=== PATIENT | male | born 1945 | race Caucasian/White ===

== ENCOUNTER 2018-09-13 18:08 | Inpatient (IN) | payer MEDICARE, OTHER ==
[~2018-09-13] VITALS: Ht 180.3 cm; Wt 101.2 kg
--- NOTE | 2018-09-13 18:10 | NUR ---
BIB SELF 73 YEAR OLD MALE C/O L FOOT PAIN AND SWELLING, DIABETIC FOOT ULCER NOTED X 3 WEEKS. ALERT AND ORIENTED X4, BREATHING EVEN AND UNLABORED WITH NO DISTRESS NOTED. SKIN WARM TO TOCUH. NOTED WITH LEFT FOOT WOUND. AWAITING TO BE SEEN BY .
[2018-09-13] MEDS ORDERED: PIPERACILLIN /TAZOBACTAM 3.375 G in IV D5W 50 ML IV ONE (19:00)
[2018-09-13] MEDS ORDERED: VANCOMYCIN 1 GM in IV D5W 250 ML IV ONE (19:00)
[2018-09-13] MEDS ORDERED: IV NS 0.9% 1,000 ML BAG IV ONE (19:00)
[2018-09-13] MEDS ORDERED: VANCOMYCIN 1 GM VIAL ONE ×2 (19:00→23:41)
[2018-09-13] MEDS ORDERED: PIPERACILLIN /TAZOBACTAM 3.375 G VIAL IV ONE ×2 (19:00→23:38)
[2018-09-13 19:12] LABS: BASOPHILS # (AUTO) 0.2 /CMM (0.0-0.2); BASOPHILS % (AUTO) 0.9 % (0.0-2.0); EOSINOPHILS % (AUTO) 0.1 % (0.0-6.0); HEMATOCRIT 42 % (39-51); LYMPHOCYTES # (AUTO) 2.1 /CMM (0.8-4.8); LYMPHOCYTES % (AUTO) 11.4 % (20.0-44.0); MEAN CORPUSCULAR HGB CONC 33 g/dl (31.0-36.0); MEAN CORPUSCULAR VOLUME 91 fL (80-96); MONOCYTES # (AUTO) 1.3 /CMM (0.1-1.30); MONOCYTES % (AUTO) 7.2 % (2.0-12.0); NEUTROPHILS # (AUTO) 14.5 /CMM (1.8-8.9); NEUTROPHILS % (AUTO) 80.4 % (43.0-81.0); PLATELET COUNT (AUTO) 209 /CMM (150-450); RED BLOOD CELL COUNT(AUTO) 4.63 MIL/uL (4.5-6.0); WHITE BLOOD COUNT (AUTO) 18.1 K/uL (4.3-11.0)
[2018-09-13 19:23] LABS: CALCIUM, SERUM 10.2 mg/dL (8.5-10.1); CARBON DIOXIDE 24 mmol/L (21-32); CHLORIDE 99 mmol/L (98-107); CREATININE 1.6 mg/dL (0.6-1.3); GLUCOSE 278 mg/dL (74-106); POTASSIUM 4.5 mmol/L (3.5-5.1); SODIUM SERUM 133 mmol/L (136-145); UREA NITROGEN, BLOOD 31 mg/dL (7-18)
--- NOTE | 2018-09-13 19:23 | NUR ---
REPORT GIVEN TO DENEEN TO CONTINUE TO MONITOR CONTUNITY OF CARE
[2018-09-13 19:29] LABS: ALANINE AMINOTRANSFERASE 21 U/L (12-78); ALBUMIN 3.6 g/dL (3.4-5.0); ALKALINE PHOSPHATASE 71 U/L (46-116); ASPARTATE AMINOTRANSFERASE 12 U/L (15-37); BILIRUBIN,DIRECT 0.1 mg/dL (0.0-0.2); BILIRUBIN,TOTAL 0.8 mg/dL (0.2-1.0); TOTAL PROTEIN, SERUM 8.5 g/dL (6.4-8.2)
[2018-09-13 19:43] LABS: LYMPHOCYTES % (MANUAL) 15 % (16-48); MONOCYTES % (MANUAL) 11 % (0-11.0); NEUTROPHILS % (MANUAL) 74 (42-76)
[2018-09-13] MEDS ORDERED: ACETAMINOPHEN 325 MG TABLET PO PRN (20:30)
[2018-09-13] MEDS ORDERED: ONDANSETRON HCL/PF 4 MG/2 ML VIAL IVP PRN (20:30)
[2018-09-13] MEDS ORDERED: MAGNESIUM HYDROXIDE 30 ML UDC PO PRN (20:30)
[2018-09-13] MEDS ORDERED: DEXTROSE 50%-WATER 50 ML DISP.SYRIN IV PRN (20:30)
[2018-09-13] MEDS ORDERED: MAG HYDROX/AL HYDROX/SIMETH 30 ML UDC PO PRN (20:30)
[2018-09-13] MEDS ORDERED: Z GUARD REMEDY 2 OZ OINT TP PRN (20:30)
[2018-09-13] MEDS ORDERED: ZOLPIDEM TARTRATE 5 MG TABLET PO PRN (20:30)
[2018-09-13] MEDS ORDERED: HYDROCODONE/APAP 5/325MG 1 EACH TABLET PO PRN (20:30)
--- NOTE | 2018-09-13 20:47 | NUR ---
ADMIT TO ROOM 203 MED SURG DX DIABETIC FOOT ULCER
--- NOTE | 2018-09-13 21:52 | NUR ---
REPORT GIVEN TO ZEV BELLE.
[2018-09-13 22:15] VITALS: BP 137/69
[2018-09-13] MEDS: BLOOD SUGAR DIAGNOSTIC 1 EACH STRIP VI SCH (22:27)
[2018-09-13 22:30] VITALS: BP 137/69
[2018-09-13] MEDS: *INSULIN REGULAR(HUMULIN R)HUM 100 UNIT/ML VIAL SQ PRN (22:30)
--- NOTE | 2018-09-13 22:30 | NUR ---
MS/RN OPENING NOTES PT RECEIVED TO UNIT FROM ER VIA MOON. A/OX3. ON ROOM AIR, BREATHING TANMAY AND UNLABORED. DENIES SOB, PAIN. IN NO ACUTE DISTRESS.IV TO LFA PATENT AND INTACT. ORIENTED PT TO ROOM AND CALL LIGHT. SEMI FOWLERS. BED IN LOW/LOCKED POSITION WITH CALL LIGHT IN REACH AND BILATERAL UPPER SIDE RAILS IN PLACE. WILL CONTINUE TO MONITOR
[2018-09-13] MEDS ORDERED: METF-440 PO (22:41)
[2018-09-13] MEDS ORDERED: VANCOMYCIN 1 GM in IV NS 0.9% 250 ML IV ONE (23:00)
[2018-09-13] MEDS ORDERED: VANCOMYCIN 0.75 GM in IV NS 0.9% 250 ML IV ONE (23:00)
--- NOTE | 2018-09-13 23:19 | NUR ---
MS/RN NOTES PER ABRASIVE [facility], GIVE ADDITIONAL DOSE OF IV VANCO 1GM
[2018-09-14] MEDS: PIPERACILLIN /TAZOBACTAM 3.375 G in IV D5W 100 ML IV SCH ×3 (05:26→20:50)
[2018-09-14 06:40] LABS: BASOPHILS # (AUTO) 0.2 /CMM (0.0-0.2); BASOPHILS % (AUTO) 1.1 % (0.0-2.0); EOSINOPHILS % (AUTO) 0.8 % (0.0-6.0); HEMATOCRIT 37 % (39-51); HEMOGLOBIN 12.1 g/dL (13.5-17.5); LYMPHOCYTES # (AUTO) 2.7 /CMM (0.8-4.8); LYMPHOCYTES % (AUTO) 17.9 % (20.0-44.0); MEAN CORPUSCULAR HGB CONC 33 g/dl (31.0-36.0); MEAN CORPUSCULAR VOLUME 91 fL (80-96); MONOCYTES # (AUTO) 1.6 /CMM (0.1-1.30); MONOCYTES % (AUTO) 10.4 % (2.0-12.0); NEUTROPHILS # (AUTO) 10.4 /CMM (1.8-8.9); NEUTROPHILS % (AUTO) 69.8 % (43.0-81.0); PLATELET COUNT (AUTO) 180 /CMM (150-450); RED BLOOD CELL COUNT(AUTO) 4.02 MIL/uL (4.5-6.0); WHITE BLOOD COUNT (AUTO) 14.9 K/uL (4.3-11.0)
[2018-09-14] MEDS: BLOOD SUGAR DIAGNOSTIC 1 EACH STRIP VI SCH ×4 (06:48→21:14)
[2018-09-14 06:52] LABS: CALCIUM, SERUM 8.7 mg/dL (8.5-10.1); CARBON DIOXIDE 24 mmol/L (21-32); CHLORIDE 104 mmol/L (98-107); CREATININE 1.3 mg/dL (0.6-1.3); GLUCOSE 163 mg/dL (74-106); MAGNESIUM 2.1 mg/dL (1.8-2.4); PHOSPHORUS 3.1 mg/dL (2.5-4.9); POTASSIUM 4.3 mmol/L (3.5-5.1); SODIUM SERUM 139 mmol/L (136-145); UREA NITROGEN, BLOOD 25 mg/dL (7-18)
[2018-09-14] MEDS: INSULIN REGULAR, HUMAN 100 UNIT/ML 3 ML VIAL SQ PRN ×3 (06:52→17:15)
[2018-09-14 07:00] VITALS: BP 150/82
[2018-09-14 07:00] LABS: CHOLESTEROL 119 mg/dL (<200); HDL CHOLESTEROL 46 mg/dL (40-60); LDL 63 mg/dL (0-99); THYROID STIMULATING HORMONE 0.805 uIU/mL (0.358-3.74); TRIGLYCERIDES 68 mg/dL (30-150)
--- NOTE | 2018-09-14 07:27 | NUR ---
MS/RN CLOSING NOTES PT AWAKE, RESTING COMFORTABLY IN BED. ON ROOM AIR, BREATHING EVEN AND UNLABORED. DENIES SOB, PAIN, N/V. IV TO LFA PATENT AND INTACT CURRENTLY RUNNING IV ZOSYN. NO SIGNIFICANT CHANGES OVERNIGHT. ALL NEEDS MET. BED IN LOW/LOCKED POSITION WITH CALL LIGHT IN REACH AND BILATERAL UPPER SIDE RAILS IN PLACE. FALL RISK AND BED ALARM ON FOR SAFETY. ENDORSED TO DAY SHIFT RN ARELI.
[2018-09-14 08:00] VITALS: BP 126/74
--- NOTE | 2018-09-14 08:02 | NUR ---
MS RN OPENING NOTE RECEIVED PATIENT ASLEEP IN BED LOCKED IN LOWEST POSITION WITH SIDERAILS UP X2. NO FACIAL GRIMACING NOTED FOR PAIN AT THIS TIME. CALL LIGHT WITHIN REACH.IV INTACT AND PATENT NO REDNESS OR SWELLING NOTED. HAS LEFT FOOT NON-PITTING EDEMA NOTED. NO SOB OR DISTRESS NOTED ON ROOM AIR TOLERATING WELL WITH O2 SAT AT 99%. USES URINAL AT BEDSIDE. BED ALARM ON FOR SAFETY. BLOOD SUGAR TO BE CHECKED THROUGHOUT SHIFT AND INSULIN TO BE GIVEN ACCORDINGLY. LABS THIS MORNING. AWAITING DIETARY AND WOUND CONSULT FOR DIABETIC FOOT ULCER. PER USED CAR SALESPERSON RN, WILL BRING IN LIST OF HOME MEDICATIONS TODAY, WILL CONTINUE TO MONITOR THROUGHOUT SHIFT
[2018-09-14 08:28] VITALS: BP 126/74
[2018-09-14] MEDS ORDERED: FEE PK DOSING 1 MIN EA MC ONE ×2 (08:39→08:42)
[2018-09-14] MEDS ORDERED: DULO60CA45 PO (10:34)
[2018-09-14] MEDS ORDERED: METF-834 PO (10:34)
[2018-09-14] MEDS ORDERED: CLOP75TA15 PO (10:34)
[2018-09-14] MEDS ORDERED: VALS1TAB4 PO (10:34)
[2018-09-14] MEDS ORDERED: ROSU10TA2 PO (10:34)
[2018-09-14] MEDS ORDERED: MAGN400T6 PO (10:34)
[2018-09-14] MEDS ORDERED: EMPA25TA PO (10:34)
[2018-09-14] MEDS ORDERED: GABA-532 PO (10:34)
[2018-09-14] MEDS ORDERED: ASPI-605 PO (10:34)
--- NOTE | 2018-09-14 12:00 | NUR ---
MS RN NOTE BS-174 INSULIN TO BE GIVEN ONCE FOOD AT BEDSIDE
--- NOTE | 2018-09-14 12:22 | NUR ---
MS RN NOTE PER ANAI HERRERA, NIGHT WAREHOUSE SELECTOR TO GIVE ONE BAG NS AT 75 ONE TIME. ORDER NOTED AND CARRIED OUT DR. SAHNI TO SEE PATIENT TOMORROW 09/15/18
[2018-09-14] MEDS ORDERED: IV NS 0.9% 1,000 ML BAG IV ONE (12:30)
--- NOTE | 2018-09-14 12:30 | NUR ---
MS RN NOTE SEEN BY DR. FUAD PIMENTEL AT BEDSIDE
[2018-09-14] MEDS: GABAPENTIN 100 MG CAPSULE PO SCH ×2 (13:41→16:47)
--- NOTE | 2018-09-14 14:24 | NUR ---
MS RN NOTE STEAM AND GAS TURBINES ASSEMBLER AT BEDSIDE FOR VENOUS DUPLEX BILATERAL EXT TO RULE OUT DVT
[2018-09-14 16:00] VITALS: BP 128/71
--- NOTE | 2018-09-14 16:10 | NUR ---
MS RN NOTE IV STARTED ON RIGHT FOREARM 22G SALINE LOCK. INTACT AND PATENT NO REDNESS OR SWELLING NOTED.
[2018-09-14 16:13] VITALS: BP 128/71
[2018-09-14 16:13] LABS: CREATININE, URINE 65.8 MG/DL (30.0-125.0); URINE TOTAL PROTEIN 17.1 mg/dL (0-11.9)
[2018-09-14] MEDS: MAGNESIUM OXIDE 400 MG TABLET PO SCH (16:47)
--- NOTE | 2018-09-14 16:50 | NUR ---
MS BELLE NOTE BS-188 INSULIN TO BE GIVEN Addendum: 09/14/18 at 1824 by PHOENIX ROBERTSON RN 3 UNITS OF INSULIN GIVEN WITH FOOD AT THE BEDSIDE
[2018-09-14] MEDS: VANCOMYCIN 1.25 GM in IV D5W 500 ML IV SCH (17:16)
--- NOTE | 2018-09-14 18:25 | NUR ---
MS RN CLOSING NOTE PATIENT RESTING IN BED AT THIS TIME. ALERT AND ORIENTED x3, ABLE TO COMMUNICATE NEEDS. IV INTACT AND PATENT NO REDNESS OR SWELLING NOTED FLUSHES WELL. CALL LIGHT WITHIN REACH AT ALL TIMES, ALL NEEDS MET. ALL DUE MEDICATIONS GIVEN ORDERED BY MD. AWAITING PODIATRY CONSULT WITH DR SZYMANSKI. BLOOD SUGARS CHECKED THROUGHOUT SHIFT AND INSULIN GIVEN PER PROTOCOL. URINE SAMPLE AND WOUND CX WITH GRAM STAIN SENT TO LAB. NO FACIAL GRIMACING NOTED FOR PAIN. NO SOB OR DISTRESS NOTED ON ROOM AIR TOLERATING WELL. WILL ENDORSE TO TRAVEL RN NURSE FOR ARELI
--- NOTE | 2018-09-14 19:30 | NUR ---
RECEIVED PATIENT AWAKE IN BED. AO X 3, ABLE TO MAKE NEEDS KNOWN. NO ACUTE DISTRESS NOTED. DENIES ANY PAIN AT THIS TIME. IV SITE PATENT, INTACT; IV ATB INFUSING ORDERED. SAFETY REMINDERS GIVEN. ON LOW BED WITH BILATERAL UPPER SIDE RAIL UP. CALL BRUNER WITHIN EASY REACH. WILL CONTINUE TO MONITOR.
[2018-09-14] MEDS: *INSULIN REGULAR(HUMULIN R)HUM 100 UNIT/ML VIAL SQ PRN (21:17)
[2018-09-14 22:00] VITALS: BP 150/82
[2018-09-15] MEDS: PIPERACILLIN /TAZOBACTAM 3.375 G in IV D5W 100 ML IV SCH ×3 (04:20→21:29)
[2018-09-15] MEDS ORDERED: VANCOMYCIN 1.25 GM in IV D5W 500 ML IV SCH (06:00)
--- NOTE | 2018-09-15 06:18 | NUR ---
PATIENT ASLEEP, EASILY AROUSABLE. RESPIRATIONS EVEN. NO SIGNS OF PAIN NOTED. NO SYMPTOMS OF HYPER/HYPOGLYCEMIA. DUE MEDS GIVEN WITH NO ASE NOTED. LEFT FOOT DRESSING INTACT. NEEDS ATTENDED. SAFETY PRECAUTIONS AND COMFORT MEASURES IN PLACE. WILL GIVE REPORT TO DAY SHIFT FOR CONTINUITY OF CARE.
[2018-09-15] MEDS: INSULIN REGULAR, HUMAN 100 UNIT/ML 3 ML VIAL SQ PRN ×3 (06:54→17:19)
[2018-09-15] MEDS: BLOOD SUGAR DIAGNOSTIC 1 EACH STRIP VI SCH ×4 (06:56→21:45)
--- NOTE | 2018-09-15 06:56 | NUR ---
BS 178
[2018-09-15 07:14] LABS: BASOPHILS # (AUTO) 0.1 /CMM (0.0-0.2); BASOPHILS % (AUTO) 0.9 % (0.0-2.0); EOSINOPHILS % (AUTO) 1.3 % (0.0-6.0); HEMATOCRIT 37 % (39-51); LYMPHOCYTES # (AUTO) 2.6 /CMM (0.8-4.8); LYMPHOCYTES % (AUTO) 20.7 % (20.0-44.0); MEAN CORPUSCULAR HGB CONC 33 g/dl (31.0-36.0); MEAN CORPUSCULAR VOLUME 91 fL (80-96); MONOCYTES # (AUTO) 1.2 /CMM (0.1-1.30); MONOCYTES % (AUTO) 9.4 % (2.0-12.0); NEUTROPHILS # (AUTO) 8.4 /CMM (1.8-8.9); NEUTROPHILS % (AUTO) 67.7 % (43.0-81.0); PLATELET COUNT (AUTO) 174 /CMM (150-450); RED BLOOD CELL COUNT(AUTO) 4.02 MIL/uL (4.5-6.0); WHITE BLOOD COUNT (AUTO) 12.4 K/uL (4.3-11.0)
[2018-09-15] MEDS ORDERED: LIDOCAINE 1% INJ 50 ML MDV IJ STA (07:24)
[2018-09-15 07:25] LABS: CALCIUM, SERUM 8.3 mg/dL (8.5-10.1); CARBON DIOXIDE 23 mmol/L (21-32); CHLORIDE 104 mmol/L (98-107); CREATININE 1.3 mg/dL (0.6-1.3); GLUCOSE 166 mg/dL (74-106); POTASSIUM 4.2 mmol/L (3.5-5.1); SODIUM SERUM 138 mmol/L (136-145); UREA NITROGEN, BLOOD 22 mg/dL (7-18)
--- NOTE | 2018-09-15 07:26 | NUR ---
MS/RN OPENING NOTE THE PATIENT ALERT AND ORIENTED X4. IN ROOM AIR AND DENIES SOB. RESPIRATION REGULAR AND UNLABORED. DENIES PAIN. THE PATIENT IN NO APPARENT DISTRESS. LFA G 20 PATENT AND SALINE LOCKED. BED LOW AND LOCKED. SIDE RAILS UP X3. CALL LIGHT WITHIN REACH. WILL CONTINUE TO MONITOR.
--- NOTE | 2018-09-15 07:30 | NUR ---
MS/RN NOTE LIDOCAINE 1% 20 MG IS ADMINISTERED BT DR SZYMANSKI.
[2018-09-15 08:08] VITALS: BP 111/60
[2018-09-15] MEDS: VALSARTAN 80 MG TABLET PO SCH (09:22)
[2018-09-15] MEDS: MAGNESIUM OXIDE 400 MG TABLET PO SCH ×2 (09:22→16:09)
[2018-09-15] MEDS: GABAPENTIN 100 MG CAPSULE PO SCH ×3 (09:23→16:09)
[2018-09-15] MEDS: ASPIRIN EC 81 MG TABLET.DR PO SCH (09:23)
[2018-09-15] MEDS: DULOXETINE HCL 30 MG CAPSULE.DR PO SCH (09:23)
[2018-09-15] MEDS: CLOPIDOGREL BISULFATE 75 MG TABLET PO SCH (09:23)
[2018-09-15] MEDS: HYDROCHLOROTHIAZIDE 25 MG TABLET PO SCH (09:23)
[2018-09-15] MEDS: ATORVASTATIN 10 MG TABLET PO SCH (09:23)
[2018-09-15] MEDS: VANCOMYCIN 1.25 GM in IV D5W 500 ML IV SCH (12:29)
[2018-09-15 16:05] VITALS: BP 138/87
[2018-09-15] MEDS: LACTOBACILLUS RHAMNOSUS GG 1 EACH CAP.SPRINK PO SCH (16:09)
--- NOTE | 2018-09-15 18:21 | NUR ---
MS/RN CLOSING NOTE THE PATIENT ALERT AND ORIENTED X4. DENIES SOB. RESPIRATION REGULAR AND UNLABORED. DENIES PAIN. LFA G 20 PATENT AND IV ANTIBIOTIC INFUSING WITH NO S/S INFILTRATION. BED LOW AND LOCKED. SIDE RAILS UP X3. CALL LIGHT WITHIN REACH. WILL ENDORSE TO DIRECTOR MEDICAL SCIENCE.
[2018-09-15 19:00] VITALS: BP 132/74
[2018-09-15] MEDS: *INSULIN REGULAR(HUMULIN R)HUM 100 UNIT/ML VIAL SQ PRN (21:46)
[2018-09-16] MEDS: PIPERACILLIN /TAZOBACTAM 3.375 G in IV D5W 100 ML IV SCH ×3 (04:03→21:19)
[2018-09-16] MEDS: BLOOD SUGAR DIAGNOSTIC 1 EACH STRIP VI SCH ×4 (06:30→21:19)
[2018-09-16] MEDS: INSULIN REGULAR, HUMAN 100 UNIT/ML 3 ML VIAL SQ PRN ×4 (06:49→21:30)
--- NOTE | 2018-09-16 06:50 | NUR ---
MS RN NOTES: BLOOD SUGAR THIS AM WAS 175. 3 UNITS OF INSULIN WAS ADMINISTERED. JUICES AT BEDSIDE.
--- NOTE | 2018-09-16 07:18 | NUR ---
MS RN CLOSING NOTES: ALL NEEDS WERE ATTENDED AND ANTICIPATED FOR. PT KEPT CLEAN, DRY, AND COMFORTABLE. PT ASLEEP AT THIS TIME. DRESSING REMAINS ON L FOOT AND IS KEPT CLEAN AND DRY. BLOOD SUGAR THIS AM WAS 175. 3 UNITS OF INSULIN WAS ADMINISTERED THIS AM. PT BEING INFUSED WITH IV ZOSYN AT 25ML/HR. VANCO TROUGH RESULTED AND WILL ENDORSE TO AM NURSE FOR HANGING WHEN ZOSYN IS FINISHED. BED KEPT IN LOW, LOCKED POSITION, AND SIDE RAILS X 2UP. ENDORSED TO AM NURSE FOR ARELI.
[2018-09-16 07:21] LABS: CALCIUM, SERUM 8.5 mg/dL (8.5-10.1); CARBON DIOXIDE 23 mmol/L (21-32); CHLORIDE 101 mmol/L (98-107); CREATININE 1.3 mg/dL (0.6-1.3); GLUCOSE 166 mg/dL (74-106); POTASSIUM 4.2 mmol/L (3.5-5.1); SODIUM SERUM 135 mmol/L (136-145); UREA NITROGEN, BLOOD 20 mg/dL (7-18)
[2018-09-16] MEDS: VANCOMYCIN 1.25 GM in IV D5W 500 ML IV SCH (07:34)
--- NOTE | 2018-09-16 07:52 | NUR ---
WOUND CARE CONSULT WOUND CARE RECEIVED CONSULT FOR DIABETIC FOOT ULCER. WOUND CARE WILL DEFER CONSULT AND TREATMENT PLANS TO DPM DR SZYMANSKI WHO IS CURRENTLY FOLLOWING THIS PATIENT. PATIENT WITH YELENA AT 17, ALL PRESSURE ULCER PREVENTION MEASURES ARE NOTED TO BE IN PLACE. WILL SEE PRN.
[2018-09-16 08:00] VITALS: BP 136/86
[2018-09-16] MEDS: GABAPENTIN 100 MG CAPSULE PO SCH ×3 (08:15→17:50)
[2018-09-16] MEDS: LACTOBACILLUS RHAMNOSUS GG 1 EACH CAP.SPRINK PO SCH ×2 (08:15→17:50)
[2018-09-16] MEDS: MAGNESIUM OXIDE 400 MG TABLET PO SCH ×2 (08:15→17:50)
[2018-09-16] MEDS: DULOXETINE HCL 30 MG CAPSULE.DR PO SCH (08:15)
[2018-09-16] MEDS: ATORVASTATIN 10 MG TABLET PO SCH (08:15)
[2018-09-16] MEDS: CLOPIDOGREL BISULFATE 75 MG TABLET PO SCH (08:15)
[2018-09-16] MEDS: ASPIRIN EC 81 MG TABLET.DR PO SCH (08:15)
[2018-09-16] MEDS: VALSARTAN 80 MG TABLET PO SCH (08:16)
[2018-09-16] MEDS: HYDROCHLOROTHIAZIDE 25 MG TABLET PO SCH (08:16)
--- NOTE | 2018-09-16 13:18 | NUR ---
MRI APPROVED BY DR. BARRERA, IT WILL BE LATER THIS AFTERNOON.EGYPTOLOGIST IS AWARE
[2018-09-16 16:30] VITALS: BP 144/88
--- NOTE | 2018-09-16 18:31 | NUR ---
MS/RN CLOSING NOTE THE PATIENT ALERT AND ORIENTED X4. IN ROOM AIR AND DENIES SOB. RESPIRATION REGULAR AND UNLABORED. OXYGEN SATURATION IN ROOM AIR AT 98%. DENIES PAIN. LEFT FA G 20 PATENT AND SALINE LOCKED. BED LOW AND LOCKED. SIDE RAILS UP X3. CALL LIGHT WITHIN REACH. WILL ENDORSE TO GANG BORE OPERATOR.
--- NOTE | 2018-09-16 19:30 | NUR ---
RN OPENING NOTES PT AWAKE AND RESTING IN BED. NO COMPLAINTS OF PAIN, SOB OR DISTRESS AT THIS TIME. PT HAS A LEFT FA #20 INTACT AND PATENT. SAFETY PRECAUTIONS IN PLACE, BED IN LOWEST LOCKED POSITION, X2 SIDE RAILS UP AND CALL LIGHT WITHIN REACH. WILL CONTINUE TO MONITOR.
[2018-09-16 20:00] VITALS: BP 139/83
[2018-09-16] MEDS: INSULIN GLARGINE, 100 UNIT/ML CARTRIDGE SQ SCH (21:29)
[2018-09-17] MEDS ORDERED: VANCOMYCIN 1.5 GM in IV D5W 500 ML IV SCH ×2
[2018-09-17] MEDS: PIPERACILLIN /TAZOBACTAM 3.375 G in IV D5W 100 ML IV SCH ×3 (05:05→20:03)
[2018-09-17] MEDS: INSULIN REGULAR, HUMAN 100 UNIT/ML 3 ML VIAL SQ PRN ×3 (06:25→17:21)
[2018-09-17] MEDS: BLOOD SUGAR DIAGNOSTIC 1 EACH STRIP VI SCH ×4 (06:32→21:41)
[2018-09-17 06:48] LABS: BASOPHILS # (AUTO) 0.1 /CMM (0.0-0.2); BASOPHILS % (AUTO) 0.8 % (0.0-2.0); EOSINOPHILS % (AUTO) 2.2 % (0.0-6.0); HEMATOCRIT 37 % (39-51); HEMOGLOBIN 12.5 g/dL (13.5-17.5); LYMPHOCYTES # (AUTO) 2.7 /CMM (0.8-4.8); LYMPHOCYTES % (AUTO) 28.3 % (20.0-44.0); MEAN CORPUSCULAR HGB CONC 34 g/dl (31.0-36.0); MEAN CORPUSCULAR VOLUME 90 fL (80-96); MONOCYTES # (AUTO) 0.9 /CMM (0.1-1.30); MONOCYTES % (AUTO) 9.5 % (2.0-12.0); NEUTROPHILS # (AUTO) 5.6 /CMM (1.8-8.9); NEUTROPHILS % (AUTO) 59.2 % (43.0-81.0); PLATELET COUNT (AUTO) 213 /CMM (150-450); WHITE BLOOD COUNT (AUTO) 9.5 K/uL (4.3-11.0)
[2018-09-17 06:52] LABS: CALCIUM, SERUM 8.8 mg/dL (8.5-10.1); CARBON DIOXIDE 26 mmol/L (21-32); CHLORIDE 100 mmol/L (98-107); CREATININE 1.1 mg/dL (0.6-1.3); GLUCOSE 184 mg/dL (74-106); PHOSPHORUS 4.3 mg/dL (2.5-4.9); POTASSIUM 3.7 mmol/L (3.5-5.1); SODIUM SERUM 133 mmol/L (136-145); UREA NITROGEN, BLOOD 25 mg/dL (7-18)
[2018-09-17 08:00] VITALS: BP 102/56
[2018-09-17] MEDS: LACTOBACILLUS RHAMNOSUS GG 1 EACH CAP.SPRINK PO SCH ×2 (08:22→17:13)
[2018-09-17] MEDS: ATORVASTATIN 10 MG TABLET PO SCH (08:22)
[2018-09-17] MEDS: MAGNESIUM OXIDE 400 MG TABLET PO SCH ×2 (08:23→17:13)
[2018-09-17] MEDS: DULOXETINE HCL 30 MG CAPSULE.DR PO SCH (08:23)
[2018-09-17] MEDS: VALSARTAN 80 MG TABLET PO SCH (08:23)
[2018-09-17] MEDS: CLOPIDOGREL BISULFATE 75 MG TABLET PO SCH (08:23)
[2018-09-17] MEDS: GABAPENTIN 100 MG CAPSULE PO SCH ×3 (08:23→17:13)
[2018-09-17] MEDS: HYDROCHLOROTHIAZIDE 25 MG TABLET PO SCH (08:24)
[2018-09-17] MEDS: ASPIRIN EC 81 MG TABLET.DR PO SCH (08:26)
--- NOTE | 2018-09-17 11:35 | NUR ---
MS RN NOTES-- DRESSING CHANGE DONE TO LEFT FOOT BY DR. SAHNI, PT TOLERATED WELL. PICTURES TAKEN.
--- NOTE | 2018-09-17 11:45 | NUR ---
MS RN NOTES-- RECEIVED A CALL FROM REHAN IN PHARMACY TO FOLLOW UP WITH PT'S JARDIANCE (DM MEDICATION). PER PT, HE "GAVE EVERYTHING TO THE PHARMACY. THEY SHOULD HAVE IT." NOTIFIED REHAN.
--- NOTE | 2018-09-17 11:57 | NUR ---
MS RN NOTES-- CALLED [facility], SPOKE WITH ROBIN, "ACINOBACTER SENSITIVITY TO [facility] WONT BE READY TILL TOMORROW 10AM." DR. HINKLE AND DR. CARPENTER MADE AWARE.
[2018-09-17 16:00] VITALS: BP 129/74
--- NOTE | 2018-09-17 18:34 | NUR ---
MS RN CLOSING NOTES ALL DUE MEDS GIVEN, NEEDS MET AND RENDERED. PT IS A/O X4, AFEBRILE. RESPIRATIONS ARE EVEN AND UNLABORED, NOT IN ANY ACUTE DISTRESS NOTED. PT DENIES ANY PAIN AT THIS TIME, NO C/O SOB, N/V. IV SITE TO LFA INTACT, NO INFILTRATION NOTED. DRESSING KEPT CLEAN AND DRY. SAFETY MEASURES ARE IN PLACE. REMINDED PT TO USE CALL LIGHT WHEN ASSISTANCE IS NEEDED, CALL LIGHT IS LEFT WITHIN REACH. WILL ENDORSE TO NEXT SHIFT FOR CONTINUITY OF CARE.
--- NOTE | 2018-09-17 19:30 | NUR ---
RN NOTES RECEIVED PT. AWAKE ON BED, A/OX4, , AMBULATORY, DENIES PAIN, NO SOB, DRESSING ON THE LEFT FOOT DRY AND INTACT,CALL LIGHT WITHIN REACH, [id number], CONTINUE TO MONITOR
[2018-09-17 19:53] VITALS: BP 139/78
[2018-09-17] MEDS: INSULIN GLARGINE, 100 UNIT/ML CARTRIDGE SQ SCH (21:35)
[2018-09-17] MEDS: *INSULIN REGULAR(HUMULIN R)HUM 100 UNIT/ML VIAL SQ PRN (21:37)
[2018-09-18] MEDS: PIPERACILLIN /TAZOBACTAM 3.375 G in IV D5W 100 ML IV SCH ×2 (04:39→12:39)
--- NOTE | 2018-09-18 06:15 | NUR ---
RN NOTES PATIENT WAS MOVED TO [facility] EXPLAINED TO THE PATIENT THE REASON WHY WERE MOVING HIM DENIES PAIN, NO SOB, MORNING CARE RENDERED,C ALL LIGHT WITHIN REACH, SIDERAILSUPX2, PT. NEEDS ATTENDED
[2018-09-18] MEDS: INSULIN REGULAR, HUMAN 100 UNIT/ML 3 ML VIAL SQ PRN ×3 (06:47→16:52)
[2018-09-18] MEDS: BLOOD SUGAR DIAGNOSTIC 1 EACH STRIP VI SCH ×3 (06:49→16:45)
[2018-09-18 07:42] LABS: CALCIUM, SERUM 8.9 mg/dL (8.5-10.1); CARBON DIOXIDE 25 mmol/L (21-32); CHLORIDE 103 mmol/L (98-107); CREATININE 1.4 mg/dL (0.6-1.3); GLUCOSE 173 mg/dL (74-106); POTASSIUM 4.3 mmol/L (3.5-5.1); SODIUM SERUM 139 mmol/L (136-145); UREA NITROGEN, BLOOD 24 mg/dL (7-18)
--- NOTE | 2018-09-18 07:49 | NUR ---
MS RN OPENING NOTE RECEIVED PATIENT AWAKE IN BED LOCKED IN LOWEST POSITION WITH SIDERAILS UPX2 FOR SAFETY. ABLE TO COMMUNICATE NEEDS. IV INTACT AND PATENT NO REDNESS OR SWELLING. CALL LIGHT WITHIN REACH. NO SOB OR DISTRESS NOTED ON ROOM AIR TOLERATING WELL. NO FACIAL GRIMACING NOTED FOR PAIN. WOUND DRESSING DRY INTACT AND IN PLACE-CHANGED BY DR. SAHNI. BLOOD SUGARS THROUGHOUT SHIFT AND INSULIN TO BE GIVEN ACCORDINGLY. WILL CONTINUE TO MONITOR THROUGHOUT SHIFT
[2018-09-18 08:00] VITALS: BP 115/58
[2018-09-18] MEDS: GABAPENTIN 100 MG CAPSULE PO SCH ×3 (08:31→16:45)
[2018-09-18] MEDS: CLOPIDOGREL BISULFATE 75 MG TABLET PO SCH (08:31)
[2018-09-18] MEDS: LACTOBACILLUS RHAMNOSUS GG 1 EACH CAP.SPRINK PO SCH ×2 (08:31→16:45)
[2018-09-18] MEDS: ATORVASTATIN 10 MG TABLET PO SCH (08:31)
[2018-09-18] MEDS: DULOXETINE HCL 30 MG CAPSULE.DR PO SCH (08:32)
[2018-09-18] MEDS: MAGNESIUM OXIDE 400 MG TABLET PO SCH ×2 (08:33→16:45)
[2018-09-18] MEDS: ASPIRIN EC 81 MG TABLET.DR PO SCH (08:33)
[2018-09-18] MEDS: VALSARTAN 80 MG TABLET PO SCH (08:33)
--- NOTE | 2018-09-18 12:14 | NUR ---
MS RN NOTE BS-192 3 UNITS OF INSULIN GIVEN. FOOD AT THE BEDSIDE
--- NOTE | 2018-09-18 12:45 | NUR ---
MS RN NOTE LEFT UPPER ARM 18G MIDLINE INSERTED. PATIENT WILL HAVE ASSISTED HOME HEALTH UPON DISCHARGE FOR 6 WEEK ANTIBIOTIC COURSE
[2018-09-18 16:00] VITALS: BP 158/77
[2018-09-18] MEDS ORDERED: ERTA1VIA4 IV (17:02)
--- NOTE | 2018-09-18 18:15 | NUR ---
SPOT BILLING CLERK NOTE PATIENT DISCHARGED IN STABLE CONDITION TO HOME WITH HOME HEALTH. ALL BELONGINGS ACCOUNTED FOR AT DISCHARGE. LEFT UPPER ARM MIDLINE INSERTED 09/18/18 AND WILL HAVE 6 WEEK COURSE ANTIBIOTIC WITH NURSE. IV REMOVED ON LEFT HAND. ALL DISCHARGE INSTRUCTIONS GIVEN TO PATIENT AND TEACH BACK RECEIVED. ALL NEEDS MET. ABLE TO COMMUNICATE NEEDS, ALERT AND ORIENTED X4. LEFT VIA PRIVATE CAR. MEDICATIONS FROM PHARMACY GIVEN TO PATIENT AT DISCHARGE
== END 2018-09-18 18:30 | disposition home health service (06) | DRG 570 ==
LOC: ER 18:13 → MEDSG2 21:04 → MED 09-18 06:16
PROVIDERS: ATTEND Internal Medicine
PROC: 0JBR0ZZ Excision of Left Foot Subcutaneous Tissue and Fascia, Open Approach (ICD-10-PCS; principal; 2018-09-15)
PROC: 05H633Z Insertion of Infusion Device into Left Subclavian Vein, Percutaneous Approach (ICD-10-PCS; 2018-09-18)
PROC: B547ZZA Ultrasonography of Left Subclavian Vein, Guidance (ICD-10-PCS; 2018-09-18)
DX: L03.116 Cellulitis of left lower limb (principal); N17.0 Acute kidney failure with tubular necrosis; M86.8X7 Other osteomyelitis, ankle and foot; E87.1 Hypo-osmolality and hyponatremia; L97.428 Non-pressure chronic ulcer of left heel and midfoot with other specified severity; E11.69 Type 2 diabetes mellitus with other specified complication; E11.621 Type 2 diabetes mellitus with foot ulcer; E11.65 Type 2 diabetes mellitus with hyperglycemia; E11.42 Type 2 diabetes mellitus with diabetic polyneuropathy; B95.61 Methicillin susceptible Staphylococcus aureus infection as the cause of diseases classified elsewhere; B96.89 Other specified bacterial agents as the cause of diseases classified elsewhere; Z79.2 Long term (current) use of antibiotics; E83.52 Hypercalcemia; I12.9 Hypertensive chronic kidney disease with stage 1 through stage 4 chronic kidney disease, or unspecified chronic kidney disease; N18.9 Chronic kidney disease, unspecified; Z79.4 Long term (current) use of insulin; E11.22 Type 2 diabetes mellitus with diabetic chronic kidney disease
CPT/HCPCS: 36415; 71045-TC; 73630-TC; 73718-TC; 80048-TC; 80061-TC; 80076-TC; 80202-TC; 82570-TC; 82962-TC; 83605-TC; 83735-TC; 84100-TC; 84155-TC; 84443-TC; 84484-TC; 85025-TC; 85652-TC; 85730-TC; 87040-TC; 87070-TC; 87081-TC; 87186-TC; 93970-TC; A6402; A6403; A6407; G0378; J1815; J2543; J3370; J3490; J7030; J7050; J7060

== ENCOUNTER 2018-09-22 11:00 | Outpatient (CLI) | payer MEDICARE, OTHER ==
[~2018-09-22 11:00] MED LIST: ASPI-605 PO; CLOP75TA15 PO; DULO60CA45 PO; EMPA25TA PO; ERTA1VIA4 IV; GABA-532 PO; MAGN400T6 PO; METF-834 PO; ROSU10TA2 PO; VALS1TAB4 PO
== END 2018-09-22 23:59 | disposition home health service (06) ==
LOC: WOU 11:00
PROVIDERS: ATTEND Podiatrist Foot & Ankle Surgery
DX: E11.621 Type 2 diabetes mellitus with foot ulcer (principal); L97.523 Non-pressure chronic ulcer of other part of left foot with necrosis of muscle; L97.522 Non-pressure chronic ulcer of other part of left foot with fat layer exposed; M86.172 Other acute osteomyelitis, left ankle and foot; E11.42 Type 2 diabetes mellitus with diabetic polyneuropathy; Z79.84 Long term (current) use of oral hypoglycemic drugs; Z95.828 Presence of other vascular implants and grafts
CPT/HCPCS: 11042; 11043; A6402; A6407

== ENCOUNTER 2018-09-29 11:20 | Outpatient (CLI) | payer MEDICARE, OTHER | END 2018-09-29 23:59 | disposition home health service (06) | LOC: WOU 11:20 | PROVIDERS: ATTEND Podiatrist Foot & Ankle Surgery | DX: E11.621 Type 2 diabetes mellitus with foot ulcer (principal); L97.523 Non-pressure chronic ulcer of other part of left foot with necrosis of muscle; L97.522 Non-pressure chronic ulcer of other part of left foot with fat layer exposed; E11.42 Type 2 diabetes mellitus with diabetic polyneuropathy; E11.69 Type 2 diabetes mellitus with other specified complication; M86.172 Other acute osteomyelitis, left ankle and foot; Z79.84 Long term (current) use of oral hypoglycemic drugs | CPT/HCPCS: 11042; 11043; A6402 ×2; Z7610 ==

== ENCOUNTER 2018-10-06 11:39 | Outpatient (CLI) | payer MEDICARE, OTHER | END 2018-10-06 23:59 | disposition home health service (06) | LOC: WOU 11:39 | PROVIDERS: ATTEND Podiatrist Foot & Ankle Surgery | DX: E11.621 Type 2 diabetes mellitus with foot ulcer (principal); L97.523 Non-pressure chronic ulcer of other part of left foot with necrosis of muscle; L97.522 Non-pressure chronic ulcer of other part of left foot with fat layer exposed; M86.172 Other acute osteomyelitis, left ankle and foot; E11.42 Type 2 diabetes mellitus with diabetic polyneuropathy; Z79.84 Long term (current) use of oral hypoglycemic drugs | CPT/HCPCS: 11042; 11043; A6402 ==

== ENCOUNTER 2018-10-20 11:20 | Outpatient (CLI) | payer MEDICARE, OTHER | END 2018-10-20 23:59 | disposition home health service (06) | LOC: WOU 11:20 | PROVIDERS: ATTEND Podiatrist Foot & Ankle Surgery | DX: E11.621 Type 2 diabetes mellitus with foot ulcer (principal); L97.522 Non-pressure chronic ulcer of other part of left foot with fat layer exposed; L97.523 Non-pressure chronic ulcer of other part of left foot with necrosis of muscle; M86.172 Other acute osteomyelitis, left ankle and foot; E11.42 Type 2 diabetes mellitus with diabetic polyneuropathy; Z79.84 Long term (current) use of oral hypoglycemic drugs | CPT/HCPCS: 11042; A6402 ==

== ENCOUNTER 2018-10-27 11:00 | Outpatient (CLI) | payer MEDICARE, OTHER | END 2018-10-27 23:59 | disposition home health service (06) | LOC: WOU 11:00 | PROVIDERS: ATTEND Podiatrist Foot & Ankle Surgery | DX: E11.621 Type 2 diabetes mellitus with foot ulcer (principal); L97.523 Non-pressure chronic ulcer of other part of left foot with necrosis of muscle; L97.522 Non-pressure chronic ulcer of other part of left foot with fat layer exposed; M86.172 Other acute osteomyelitis, left ankle and foot; E11.42 Type 2 diabetes mellitus with diabetic polyneuropathy; Z79.84 Long term (current) use of oral hypoglycemic drugs | CPT/HCPCS: 11042; 11043; A6402 ==

== ENCOUNTER 2018-11-03 11:25 | Outpatient (CLI) | payer MEDICARE, OTHER | END 2018-11-03 23:59 | disposition home health service (06) | LOC: WOU 11:25 | PROVIDERS: ATTEND Podiatrist Foot & Ankle Surgery | DX: E11.621 Type 2 diabetes mellitus with foot ulcer (principal); L97.523 Non-pressure chronic ulcer of other part of left foot with necrosis of muscle; L97.522 Non-pressure chronic ulcer of other part of left foot with fat layer exposed; M86.172 Other acute osteomyelitis, left ankle and foot; E11.42 Type 2 diabetes mellitus with diabetic polyneuropathy; Z79.84 Long term (current) use of oral hypoglycemic drugs | CPT/HCPCS: 11042; 11043; A6402 ×2 ==

== ENCOUNTER 2018-11-10 10:50 | Outpatient (CLI) | payer MEDICARE, OTHER | END 2018-11-10 23:59 | disposition home health service (06) | LOC: WOU 10:50 | PROVIDERS: ATTEND Podiatrist Foot & Ankle Surgery | DX: E11.621 Type 2 diabetes mellitus with foot ulcer (principal); L97.522 Non-pressure chronic ulcer of other part of left foot with fat layer exposed; M86.172 Other acute osteomyelitis, left ankle and foot; E11.42 Type 2 diabetes mellitus with diabetic polyneuropathy; Z79.84 Long term (current) use of oral hypoglycemic drugs | CPT/HCPCS: 11042; A6402 ==

== ENCOUNTER 2018-11-24 09:50 | Outpatient (CLI) | payer MEDICARE, OTHER | END 2018-11-24 23:59 | disposition home health service (06) | LOC: WOU 09:50 | PROVIDERS: ATTEND Podiatrist Foot & Ankle Surgery | DX: E11.621 Type 2 diabetes mellitus with foot ulcer (principal); L97.522 Non-pressure chronic ulcer of other part of left foot with fat layer exposed; M86.172 Other acute osteomyelitis, left ankle and foot; E11.42 Type 2 diabetes mellitus with diabetic polyneuropathy; Z79.84 Long term (current) use of oral hypoglycemic drugs | CPT/HCPCS: 11042; A6402 ==

== ENCOUNTER 2018-12-08 11:15 | Outpatient (CLI) | payer MEDICARE, OTHER | END 2018-12-08 23:59 | disposition home or self-care (01) | LOC: WOU 11:15 | PROVIDERS: ATTEND Podiatrist Foot & Ankle Surgery | DX: E11.42 Type 2 diabetes mellitus with diabetic polyneuropathy (principal); M86.272 Subacute osteomyelitis, left ankle and foot; Z79.84 Long term (current) use of oral hypoglycemic drugs; Z86.31 Personal history of diabetic foot ulcer | CPT/HCPCS: A6402; G0463 ==

== ENCOUNTER 2020-04-01 10:55 | Emergency (ER) | payer MEDICARE, OTHER ==
[~2020-04-01] VITALS: Ht 180.3 cm; Wt 99.8 kg
[~2020-04-01 10:55] MED LIST changes: -MAGN400T6 PO; +MAGN400T8 PO
[2020-04-01 11:00] VITALS: BP 155/81
[2020-04-01] MEDS ORDERED: CEPHALEXIN MONOHYDRATE 500 MG CAPSULE PO ONE ×2 (11:48→12:00)
== END 2020-04-01 12:06 | disposition home or self-care (01) ==
LOC: ER 10:56
DX: L03.115 Cellulitis of right lower limb (principal); E11.9 Type 2 diabetes mellitus without complications; Z79.82 Long term (current) use of aspirin; Z79.899 Other long term (current) drug therapy; Z79.84 Long term (current) use of oral hypoglycemic drugs